=== PATIENT | female | born 1985 | race Two or more races ===

== ENCOUNTER 2019-04-20 15:54 | Emergency (ER) | payer SELFPAY ==
[~2019-04-20] VITALS: Ht 154.9 cm; Wt 66.0 kg
[2019-04-20 16:43] LABS: BASOPHILS % 0.4 % (0.0-2.0); EOSINOPHILS % 1.8 % (0.0-5.0); HEMATOCRIT. 39.7 % (36.0-48.0); HEMOGLOBIN. 13.4 g/dL (12.0-16.0); MEAN CORPUSCULAR HEMOGLOBIN 32.5 pg (28.0-32.0); MEAN CORPUSCULAR VOLUME 96.3 fL (81.0-99.0); MEAN PLATELET VOLUME 8.2 fl (7.4-10.4); MONOCYTES % 6.5 % (2.0-8.0); NEUTROPHILS % 60.3 % (40.0-76.0); PLATELET 265 x1000/uL (130-400); RED BLOOD CELL COUNT 4.12 mill/uL (4.2-5.4)
[2019-04-20 16:47] LABS: CHLORIDE 106 mEq/L (98-107)
[2019-04-20 16:49] LABS: PROTHROMBIN TIME 10.2 sec (9.6-11.0)
[2019-04-20 16:55] LABS: HCG SCREEN NEGATIVE
[2019-04-20] MEDS ORDERED: SODIUM CHLORIDE 0.9% 1,000 ML IV ONE ×2 (17:32→17:42)
[2019-04-20] MEDS ORDERED: FAMOTIDINE 20MG/2ML VIAL IV STA (17:42)
[2019-04-20] MEDS ORDERED: ONDANSETRON HCL 4MG/2ML INJ IV STA (17:42)
[2019-04-20] MEDS ORDERED: KETOROLAC 30MG/ML VIAL IV STA (17:42)
[2019-04-20 18:28] LABS: CLARITY URINE CLEAR (CLEAR); COLOR URINE YELLOW (YELLOW); KETONES URINE NEGATIVE (NEGATIVE); LEUKOCYTE ESTERASE URINE NEGATIVE (NEGATIVE); NITRITE URINE NEGATIVE (NEGATIVE); OCCULT BLOOD URINE NEGATIVE (NEGATIVE); PH URINE 6.5 (4.5-8.0); PROTEIN URINE NEGATIVE (NEGATIVE); SPECIFIC GRAVITY URINE 1.018 (1.005-1.030)
[2019-04-20 20:28] VITALS: BP 100/56
== END 2019-04-20 20:48 | disposition home or self-care (01) ==
LOC: ER 15:54
DX: R10.13 Epigastric pain (principal); R11.0 Nausea; R30.0 Dysuria; R39.15 Urgency of urination
CPT/HCPCS: 36415; 80053; 81003; 81025; 83690; 84703; 85025; 85610; 96374; 96375; 99283; J1885; J2405; J3490; J7030; Z7610